=== PATIENT | male | born 1995 | race Two or more races ===

== ENCOUNTER 2020-03-31 06:10 | Emergency (ER) | payer SELFPAY ==
[~2020-03-31] VITALS: Ht 172.7 cm; Wt 68.0 kg
[2020-03-31 06:13] VITALS: BP 132/86
--- NOTE | 2020-03-31 06:21 | Emergency Room Report ---
History of Present Illness General Chief Complaint: Substance Abuse Source: Medical Record, EMS Present Illness HPI Disclaimer: Please note that this report is being documented using DRAGON technology. This can lead to erroneous entry secondary to incorrect interpretation by the dictating instrument. HPI: 25-year-old male brought in by EMS for suspected overdose. The patient was in a hotel room found unresponsive by his friends. Reportedly hypoxic and apneic. He was given Narcan IV and IM which improved his condition. He arrives awake and alert. He reports to drinking alcohol and using fentanyl. Denies other drugs. Denies recent illness. Denies fever, chills, chest pain, palpitations, cough shortness of breath at this time. Reports nausea but denies vomiting. No recent diarrhea. No known sick contacts. Was using drugs recreationally. 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 EOMI. Cardiovascular: RRR. S1 and S2 normal. No murmur appreciated Resp: Normal work of breathing. No cough, wheezing or crackles appreciated Abdomen: Abdomen is soft, nondistended. Nontender Skin: Intact. No abrasions, laceration or rash over the exposed skin MSK: Normal tone and bulk. Moving all extremities. No obvious deformity. Neuro: Awake and alert. Mentating appropriately. Denies SI/HI Medical Decision Making Diagnostic Impression: Primary Impression: Substance abuse Additional Impression: Pneumonia ER Course 25-year-old male brought in for suspected overdose. He admits to using alcohol and fentanyl. Patient breathing comfortably, 1% room air, mentating appropriately and denies SI/HI. Labs returned largely within normal limits. Patient has been awake and alert and saturating well during his ED stay. X-ray concerning for right lower lobe pneumonia. Will start azithromycin. No murmur appreciated and only one focus of pneumonia identified on x-ray. Does not appear septic. Patient is positive for amphetamines, benzodiazepines, cocaine and marijuana. Clinically sober and requesting to return back to his motel. Patient is agitated but I suspect this is secondary to substance abuse. Provided resources for substance abuse. Also instructed him that he needs a secondary chest x-ray to make sure his pneumonia is improving in the week. Instructed to return with new or worsening symptoms. Laboratory Tests Test 03/31/20 06:30 03/31/20 07:16 White Blood Count 10.2 K/UL (4.8-10.8) Red Blood Count 4.40 M/UL (4.70-6.10) L Hemoglobin 13.5 G/DL (14.2-18.0) L Hematocrit 39.5 % (42.0-52.0) L Mean Corpuscular Volume 90 FL (80-99) Mean Corpuscular Hemoglobin 30.7 PG (27.0-31.0) Mean Corpuscular Hemoglobin Concent 34.2 G/DL (32.0-36.0) Red Cell Distribution Width 12.3 % (11.6-14.8) Platelet Count 231 K/UL (150-450) Mean Platelet Volume 7.5 FL (6.5-10.1) Neutrophils (%) (Auto) 77.7 % (45.0-75.0) H Lymphocytes (%) (Auto) 14.7 % (20.0-45.0) L Monocytes (%) (Auto) 6.1 % (1.0-10.0) Eosinophils (%) (Auto) 0.7 % (0.0-3.0) Basophils (%) (Auto) 0.8 % (0.0-2.0) Sodium Level 138 MMOL/L (136-145) Potassium Level 3.6 MMOL/L (3.5-5.1) Chloride Level 100 MMOL/L (98-107) Carbon Dioxide Level 28 MMOL/L (21-32) Anion Gap 10 mmol/L (5-15) Blood Urea Nitrogen 10 mg/dL (7-18) Creatinine 0.5 MG/DL (0.55-1.30) L Estimated Glomerular Filtration Rate > 60 mL/min (>60) Glucose Level 93 MG/DL (74-106) Calcium Level 8.6 MG/DL (8.5-10.1) Total Bilirubin 0.7 MG/DL (0.2-1.0) Aspartate Amino Transferase (AST) 32 U/L (15-37) Alanine Aminotransferase (ALT) 27 U/L (12-78) Alkaline Phosphatase 69 U/L (46-116) Total Protein 7.6 G/DL (6.4-8.2) Albumin 3.8 G/DL (3.4-5.0) Globulin 3.8 g/dL Albumin/Globulin Ratio 1.0 (1.0-2.7) Salicylates Level 0.7 ug/mL (2.8-20) L Acetaminophen Level < 2 MCG/ML (10-30) L Serum Alcohol 3 mg/dL Urine Opiates Screen Pending Urine Barbiturates Screen Pending Phencyclidine (PCP) Screen Pending Urine Amphetamines Screen Pending Urine Benzodiazepines Screen Pending Urine Cocaine Screen Pending Urine Marijuana (THC) Screen Pending Chest X-Ray Diagnostic Results Chest X-Ray Diagnostic Results : Chest X-Ray Ordered: Yes # of Views/Limited/Complete: 1 View Indication: Shortness of Breath EP Interpretation: Yes Interpretation: no effusion, no pneumothorax, other - Right lower lobe consolidation Impression: Other - Right lower lobe pneumonia Electronically Signed by: Electronically signed by Dr. Marques Bhat MD Last Vital Signs Date Time Temp Pulse Resp B/P (MAP) Pulse Ox O2 Delivery O2 Flow Rate FiO2 03/31/20 06:03 98.2 70 16 134/88 (103) 98 Room Air Disposition: HOME, SELF-CARE Condition: Stable Scripts Azithromycin* (ZITHROMAX*) 250 Mg Tablet 250 MG ORAL DAILY, #6 TAB 0 Refills Take two tables once daily for 1 day, then one tablet once daily for 4 days. Prov: Marques Bhat MD 03/31/20 Naloxone HCl (Narcan) 4 Mg Morris 4 MG NS ONCE, #1 SPRAY Prov: Marques Bhat MD 03/31/20 Marques Bhat MD Mar 31, 2020 06:21
[2020-03-31] MEDS ORDERED: NARCAN4 MG NS (06:22)
[2020-03-31 07:02] LABS: BASOPHILS % (AUTO) 0.8 % (0.0-2.0); EOSINOPHILS % (AUTO) 0.7 % (0.0-3.0); HEMATOCRIT 39.5 % (42.0-52.0); HEMOGLOBIN 13.5 G/DL (14.2-18.0); LYMPHOCYTES % (AUTO) 14.7 % (20.0-45.0); MEAN CORPUSCULAR VOLUME 90 FL (80-99); MONOCYTES % (AUTO) 6.1 % (1.0-10.0); NEUTROPHILS % (AUTO) 77.7 % (45.0-75.0); PLATELET COUNT 231 K/UL (150-450); RED CELL DISTRIBUTION WIDTH 12.3 % (11.6-14.8); WHITE BLOOD COUNT 10.2 K/UL (4.8-10.8)
--- NOTE | 2020-03-31 07:16 | Diagnostic Imaging Report ---
EXAM: XR Chest, 1 View CLINICAL HISTORY: SOB TECHNIQUE: Frontal view of the chest. COMPARISON: No relevant prior studies available. FINDINGS: Lungs: Airspace consolidation within the right lower lobe, concerning for pneumonia. Lungs are otherwise well inflated and aerated. No pulmonary edema. Pleural space: Unremarkable. No pneumothorax. Heart: Unremarkable. No cardiomegaly. Mediastinum: No mediastinal widening or shift. Bones/joints: Unremarkable. IMPRESSION: Right lower lobe airspace consolidation, concerning for pneumonia. Recommend follow-up chest radiograph to confirm complete resolution.
--- NOTE | 2020-03-31 07:17 | NUR ---
ED Nurse Note: Pt was brought in by EMS via ambulance. He is a/o/4. His vitals are stable on RA. He is speaking in complete sentances and is walking around the unit with a steady gait. Per EMS he was found unresponisive in his shower. They gave sammi rounds of narcan via IV and two rounds of narcan IM in the field. He is now awake and alert. He is very demanding of staff and needs consistent redirection and education.
--- NOTE | 2020-03-31 07:18 | NUR ---
HAND-OFF: Report given to SYLVESTER Pate.
[2020-03-31 07:30] LABS: ALANINE AMINOTRANSFERASE 27 U/L (12-78); ALBUMIN 3.8 G/DL (3.4-5.0); ALKALINE PHOSPHATASE 69 U/L (46-116); ANION GAP 10 mmol/L (5-15); ASPARTATE AMINO TRANSFERASE 32 U/L (15-37); BILIRUBIN,TOTAL 0.7 MG/DL (0.2-1.0); BLOOD UREA NITROGEN 10 mg/dL (7-18); CALCIUM 8.6 MG/DL (8.5-10.1); CARBON DIOXIDE 28 MMOL/L (21-32); CHLORIDE 100 MMOL/L (98-107); POTASSIUM 3.6 MMOL/L (3.5-5.1); SODIUM 138 MMOL/L (136-145)
[2020-03-31] MEDS ORDERED: ZITHROMAX250 MG ORAL (07:32)
[2020-03-31 07:43] LABS: CREATININE 0.5 MG/DL (0.55-1.30)
[2020-03-31 07:57] VITALS: BP 135/88
--- NOTE | 2020-03-31 07:57 | NUR ---
ER DISCHARGE NOTE: Patient is cleared to be discharged per ERMD, pt is aox4, on room air, with stable vital signs. pt was given dc and prescription instructions, pt was able to verbalize understanding, pt id band and iv site removed without complications. pt is able to ambulate with steady gait. pt took all belongings.
== END 2020-03-31 07:57 | disposition home or self-care (01) ==
LOC: EDBD 06:10 → EMR 06:35
DX: F15.10 Other stimulant abuse, uncomplicated (principal); F14.10 Cocaine abuse, uncomplicated; F12.10 Cannabis abuse, uncomplicated; F13.10 Sedative, hypnotic or anxiolytic abuse, uncomplicated; J18.9 Pneumonia, unspecified organism
CPT/HCPCS: 36415; 71045; 80053; 80307; 85025; 99284; G0480